=== PATIENT | male | born 1980 | race Caucasian/White ===

== ENCOUNTER 2017-03-31 06:10 | Emergency (ER) | payer SELFPAY ==
[~2017-03-31] VITALS: Ht 182.9 cm; Wt 99.2 kg
[2017-03-31 07:24] LABS: CHLORIDE 97 mEq/L (99-109); POTASSIUM 5.6 mEq/L (3.7-5.4); SODIUM 128 mEq/L (136-147)
[2017-03-31 07:29] LABS: CREATININE 0.9 mg/dL (0.6-1.3); GFR ESTIMATE (CALCULATED) > 59 mL/min/ (58.99-99999)
[2017-03-31 07:30] LABS: UREA NITROGEN (BUN) 10 mg/dL (9-23)
[2017-03-31 07:31] LABS: GLUCOSE 303 mg/dL (70-99)
[2017-03-31 07:56] LABS: APPEARANCE CLEAR ((CLEAR)); BILIRUBIN NEGATIVE; BLOOD NEGATIVE; COLOR YELLOW ((YELLOW)); GLUCOSE (STRIP) >=500; KETONES 20; LEUKOCYTES NEGATIVE; NITRITE NEGATIVE; PROTEIN (STRIP) 30; SPECIFIC GRAVITY 1.038 (1.000-1.030); UCUL ADDED? NO; UROBILINOGEN 0.2 MG/DL (0.2-1.0)
[2017-03-31 08:44] LABS: MCH 26.6 PG (29.0-34.0); MCHC 32.2 G/DL (30.0-36.0)
[2017-03-31 08:46] LABS: HEMATOCRIT 42.2 % (38.0-50.0); MCV 82.4 FL (86-99); PLATELET COUNT 288 K/uL (156-360); RBC DIS.WIDTH-CV 12.8 % (11.8-14.6); RBC DIS.WIDTH-SD 37.9 % (39-53); RED BLOOD COUNT 5.12 M/uL (4.00-5.50); WHITE BLOOD COUNT 4.9 K/uL (4.1-10.2)
[2017-03-31 08:50] LABS: HEMOGLOBIN 13.6 G/DL (12.5-16.6)
[2017-03-31 09:35] LABS: CHLORIDE 102 mEq/L (99-109); POTASSIUM 4.3 mEq/L (3.7-5.4); SODIUM 131 mEq/L (136-147)
[2017-03-31 09:37] LABS: GLUCOSE 332 mg/dL (70-99)
[2017-03-31 09:40] LABS: GFR ESTIMATE (CALCULATED) > 59 mL/min/ (58.99-99999)
[2017-03-31 09:41] LABS: UREA NITROGEN (BUN) 10 mg/dL (9-23)
[2017-03-31] MEDS ORDERED: METFORMIN HCL500 MG PO (10:40)
[2017-03-31] MEDS ORDERED: PERCOCET 5/31 TABLET PO (10:40)
[2017-03-31] MEDS ORDERED: FLEXERIL10 MG PO (10:40)
[2017-03-31 11:12] VITALS: BP 142/97
== END 2017-03-31 11:16 | disposition home or self-care (01) ==
LOC: EME 06:10
PROVIDERS: Emergency Medicine
DX: S39.012A Strain of muscle, fascia and tendon of lower back, initial encounter (principal); R73.9 Hyperglycemia, unspecified; X58.XXXA Exposure to other specified factors, initial encounter; R10.9 Unspecified abdominal pain; F17.200 Nicotine dependence, unspecified, uncomplicated; Z88.0 Allergy status to penicillin
CPT/HCPCS: 74176; 80048; 80048 91; 81003; 85027; 99281; 99285; J1885; J7030